=== PATIENT | female | born 1980 | race Caucasian/White ===

== ENCOUNTER 2021-03-23 11:43 | Day surgery (SDC) | payer OTHER ==
[~2021-03-23] VITALS: Ht 170.2 cm; Wt 58.3 kg
[2021-03-23 12:50] VITALS: BP 133/84
[2021-03-23] MEDS ORDERED: CHLORHEXIDINE 15 ML UDC ONE (12:55)
[2021-03-23] MEDS ORDERED: CHLORHEXIDINE 15 ML UDC PO ONE (13:00)
[2021-03-23] MEDS ORDERED: LACTATED RINGERS 1,000 ML IV SCH (13:00)
[2021-03-23] MEDS ORDERED: VITAMIN D3 PO (13:05)
[2021-03-23] MEDS ORDERED: ZINC PO (13:05)
[2021-03-23] MEDS ORDERED: DHA PO (13:05)
[2021-03-23] MEDS ORDERED: VITAMIN C PO (13:05)
[2021-03-23] MEDS ORDERED: MULT-658 PO (13:05)
[2021-03-23 13:27] LABS: BASOPHILS % (AUTO) 1 % (0-1); EOSINOPHILS % (AUTO) 1 % (1-7); LYMPHOCYTES % (AUTO) 26 % (22-44); MEAN CORPUSCULAR HGB CONC 34.4 g/dL (32.4-35.8); MEAN PLATELET VOLUME 7.4 fL (7.4-10.4); MONOCYTES % (AUTO) 8 % (2-9); NEUTROPHILS % (AUTO) 64 % (42-75); PLATELET COUNT 346 x10^3/uL (130-400); RED BLOOD COUNT 4.44 x10^6/uL (3.82-5.3); RED CELL DISTRIBUTION WIDTH 12.6 % (9.6-15.2)
[2021-03-23] MEDS ORDERED: MISOPROSTOL 200 MCG TABLET ONE (14:08)
[2021-03-23] MEDS ORDERED: OXYTOCIN 10 UNITS/ML, 1ML ONE (14:09)
[2021-03-23] MEDS ORDERED: SILVER NITRATE STICK TP ONE (14:09)
[2021-03-23] MEDS ORDERED: METHYLERGONOVINE 0.2 MG/ML IM ONE (14:09)
[2021-03-23] MEDS ORDERED: FENTANYL PF 100 MCG/2ML ONE (14:12)
[2021-03-23] MEDS ORDERED: MIDAZOLAM 1 MG/ML, 2ML ONE (14:12)
[2021-03-23] MEDS ORDERED: IBUPROFEN 600 MG TABLET PO ONE (16:30)
[2021-03-23] MEDS ORDERED: OXYcodone 5 MG/5 ML ORAL.SOL UDC PO PRN (16:30)
[2021-03-23] MEDS ORDERED: OXYcodone 5 MG/5 ML ORAL.SOL UDC ONE (16:33)
== END 2021-03-23 16:55 | disposition home or self-care (01) ==
LOC: OUT 11:43
PROVIDERS: ATTEND Obstetrics & Gynecology
DX: O02.1 Missed abortion (principal); F32.9 Major depressive disorder, single episode, unspecified; G43.909 Migraine, unspecified, not intractable, without status migrainosus; Z20.822 Contact with and (suspected) exposure to COVID-19
CPT/HCPCS: 36415; 59820; 85025; 86850; 86870; 86900; 86922; 87635; 88305; J2210; J2250; J3010; J7120; 86923; J2590